=== PATIENT | female | born 1940 | race Caucasian/White ===

== ENCOUNTER 2016-06-30 11:47 | Inpatient (IN) | payer OTHER, BC ==
[~2016-06-30] VITALS: Ht 157.5 cm; Wt 46.2 kg
[2016-06-30 13:14] VITALS: BP 155/81
[2016-06-30] MEDS ORDERED: ACETAMINOPHEN325 M3 PO (13:56)
[2016-06-30] MEDS ORDERED: LIPITOR80 MG PO (13:58)
[2016-06-30] MEDS ORDERED: ASPIRIN325 MG PO (13:58)
[2016-06-30] MEDS ORDERED: HEPARIN SO5000 UNITS SC (14:00)
[2016-06-30] MEDS ORDERED: FLONASE16 G1 BOTH NARES (14:00)
[2016-06-30] MEDS ORDERED: ESSENTIAL DAIL1 EACH PO (14:01)
[2016-06-30] MEDS ORDERED: LISINOPRIL10 MG PO (14:01)
[2016-06-30 15:41] VITALS: BP 163/77
[2016-07-01 00:03] VITALS: BP 169/81
[2016-07-01 04:58] VITALS: BP 151/67
[2016-07-01 05:21] LABS: HEMATOCRIT 41.7 % (36.0-46.0); MCH 29.7 PG (29.0-34.0); MCHC 33.3 G/DL (30.0-36.0); MCV 89.1 FL (83-99); MEAN PLAT.VOLUME 11.4 uM^3 (9.5-12.4); PLATELET COUNT 247 K/uL (156-360); RBC DIS.WIDTH-CV 13.9 % (11.8-14.6); RBC DIS.WIDTH-SD 44.8 % (39-53); RED BLOOD COUNT 4.68 M/uL (3.80-5.20); WHITE BLOOD COUNT 6.7 K/uL (4.1-10.2)
[2016-07-01 05:46] LABS: ALKALINE PHOSPHATASE 47 IU/L (3-129); ANION GAP 9 MEQ/L (2-14); CHLORIDE 103 MEQ/L (99-109); GFR ESTIMATE (CALCULATED) > 59 mL/min/; GLUCOSE 88 mg/dL (70-99); POTASSIUM 3.5 MEQ/L (3.7-5.4); SAMPLE HEMOLYSIS CHECK 0; SAMPLE ICTERIC CHECK 0; SAMPLE LIPEMIA CHECK 0; SODIUM 140 MEQ/L (136-147); TOTAL BILIRUBIN 0.4 MG/DL (0.0-1.0); UREA NITROGEN (BUN) 27 mg/dL (9-23)
[2016-07-01 15:15] VITALS: BP 149/72
[2016-07-01 15:25] VITALS: BP 149/72
[2016-07-02 05:40] VITALS: BP 148/84
[2016-07-02 06:55] LABS: ALKALINE PHOSPHATASE 45 IU/L (3-129); ANION GAP 8 MEQ/L (2-14); CHLORIDE 106 MEQ/L (99-109); GFR ESTIMATE (CALCULATED) > 59 mL/min/; GLUCOSE 78 mg/dL (70-99); SAMPLE HEMOLYSIS CHECK 0; SAMPLE ICTERIC CHECK 0; SAMPLE LIPEMIA CHECK 0; SODIUM 141 MEQ/L (136-147); TOTAL BILIRUBIN 0.4 MG/DL (0.0-1.0); UREA NITROGEN (BUN) 36 mg/dL (9-23)
[2016-07-02 06:56] LABS: POTASSIUM 4.4 MEQ/L (3.7-5.4)
[2016-07-02 15:15] VITALS: BP 153/71
[2016-07-03 05:23] VITALS: BP 151/77
[2016-07-03 15:10] VITALS: BP 160/70
[2016-07-04 05:42] VITALS: BP 135/69
[2016-07-04 15:38] VITALS: BP 157/75
[2016-07-05 04:55] VITALS: BP 149/72
[2016-07-05 15:44] VITALS: BP 125/61
[2016-07-06 05:21] VITALS: BP 148/70
[2016-07-06 15:00] VITALS: BP 147/83
[2016-07-07 05:28] VITALS: BP 134/72
[2016-07-07 15:15] VITALS: BP 121/65
[2016-07-08 05:09] VITALS: BP 157/72
[2016-07-08 15:09] VITALS: BP 103/58
[2016-07-09 05:43] VITALS: BP 163/77
[2016-07-09 15:00] VITALS: BP 154/71
[2016-07-10 05:00] VITALS: BP 153/74
[2016-07-10 06:39] LABS: HEMATOCRIT 38.6 % (36.0-46.0); MCH 29.9 PG (29.0-34.0); MCHC 32.6 G/DL (30.0-36.0); MCV 91.7 FL (83-99); MEAN PLAT.VOLUME 11.8 uM^3 (9.5-12.4); PLATELET COUNT 237 K/uL (156-360); RBC DIS.WIDTH-CV 14.3 % (11.8-14.6); RBC DIS.WIDTH-SD 47.8 % (39-53); RED BLOOD COUNT 4.21 M/uL (3.80-5.20); WHITE BLOOD COUNT 7.6 K/uL (4.1-10.2)
[2016-07-10 07:09] LABS: ALKALINE PHOSPHATASE 39 IU/L (3-129); ANION GAP 7 MEQ/L (2-14); CHLORIDE 107 MEQ/L (99-109); GFR ESTIMATE (CALCULATED) > 59 mL/min/; GLUCOSE 75 mg/dL (70-99); POTASSIUM 4.3 MEQ/L (3.7-5.4); SAMPLE HEMOLYSIS CHECK 0; SAMPLE ICTERIC CHECK 0; SAMPLE LIPEMIA CHECK 0; SODIUM 142 MEQ/L (136-147); TOTAL BILIRUBIN 0.4 MG/DL (0.0-1.0); UREA NITROGEN (BUN) 19 mg/dL (9-23)
[2016-07-10 15:11] VITALS: BP 121/74
[2016-07-11 05:00] VITALS: BP 141/71
[2016-07-11 15:16] VITALS: BP 120/63
[2016-07-12 05:46] VITALS: BP 139/67
[2016-07-12 14:59] VITALS: BP 119/64
[2016-07-13 05:31] VITALS: BP 139/68
[2016-07-13 15:25] VITALS: BP 123/76
[2016-07-14 05:55] VITALS: BP 142/69
[2016-07-14 15:09] VITALS: BP 129/65
[2016-07-15 05:37] VITALS: BP 140/67
[2016-07-15] MEDS ORDERED: LIPITOR80 MG PO (11:42)
[2016-07-15] MEDS ORDERED: SENNA PLUS TAB1 EACH PO (11:42)
[2016-07-15] MEDS ORDERED: LISINOPRIL10 MG PO (11:42)
[2016-07-15] MEDS ORDERED: DOCUSATE SODIU100 MG PO (11:42)
[2016-07-15] MEDS ORDERED: ASPIRIN325 MG PO (11:42)
== END 2016-07-15 15:11 | DRG 57 ==
LOC: 3WEST 11:47
PROVIDERS: Physical Medicine & Rehabilitation Pain Medicine
PROC: F07M0ZZ Range of Motion and Joint Mobility Treatment of Musculoskeletal System - Whole Body (ICD-10-PCS; principal; 2016-06-30)
DX: I69.351 Hemiplegia and hemiparesis following cerebral infarction affecting right dominant side (principal); I69.322 Dysarthria following cerebral infarction; I69.392 Facial weakness following cerebral infarction; I10 Essential (primary) hypertension; I65.23 Occlusion and stenosis of bilateral carotid arteries; I69.398 Other sequelae of cerebral infarction; H54.7 Unspecified visual loss; E87.6 Hypokalemia; J30.2 Other seasonal allergic rhinitis; I69.321 Dysphasia following cerebral infarction; E88.09 Other disorders of plasma-protein metabolism, not elsewhere classified; K59.00 Constipation, unspecified; E78.00 Pure hypercholesterolemia, unspecified; Z60.2 Problems related to living alone; Z88.0 Allergy status to penicillin; Z88.1 Allergy status to other antibiotic agents; Z79.82 Long term (current) use of aspirin; Z82.49 Family history of ischemic heart disease and other diseases of the circulatory system; Z82.3 Family history of stroke
CPT/HCPCS: 80053; 85027; 92507 GN; 92523 GN; 92610 GN; 97110 GO; 97530 GP; 97532 GN; J1644